=== PATIENT | male | born 1975 | race Caucasian/White ===

== ENCOUNTER 2017-12-23 14:38 | Inpatient (IN) | payer OTHER ==
[2017-12-23 14:55] LABS: ADD MAN DIFF? NO
[2017-12-23 14:57] LABS: BASOPHIL # 0.1 10^3/ul (0.0-0.1); BASOPHILS % 0.8 % (0.0-2.0); EOSINOPHILS # 0.1 10^3/ul (0.0-0.5); EOSINOPHILS % 1.1 % (0.0-7.0); HEMATOCRIT 44.8 % (42.0-52.0); HEMOGLOBIN 14.7 g/dl (14.0-18.0); LYMPHOCYTES # 1.3 10^3/ul (0.8-2.9); LYMPHOCYTES % 10.3 % (15.0-51.0); MEAN CORPUSCULAR HEMOGLOBIN 27.8 pg (29.0-33.0); MEAN CORPUSCULAR HGB CONC 32.8 g/dl (32.0-37.0); MEAN CORPUSCULAR VOLUME 84.8 fl (82.0-101.0); MEAN PLATELET VOLUME 11.7 fl (7.4-10.4); MONOCYTE # 0.7 10^3/ul (0.3-0.9); MONOCYTES % 5.3 % (0.0-11.0); NEUTROPHIL # 10.3 10^3/ul (1.6-7.5); PLATELET COUNT 339 10^3/UL (140-415); RED BLOOD COUNT 5.28 10^6/ul (4.70-6.10); RED CELL DISTRIBUTION WIDTH 12.9 % (11.5-14.5)
[2017-12-23 14:57] LABS: WHITE BLOOD COUNT 12.6 10^3/ul (4.8-10.8)
[2017-12-23] MEDS: ONDANSETRON 4 MG INJ IV (15:06)
[2017-12-23] MEDS: SOD CHLORIDE 0.9% 1,000 ML IV (15:07)
[2017-12-23 15:10] LABS: ADD UMIC NO; UR ASCORBIC ACID NEGATIVE (NEGATIVE); UR BILIRUBIN (Dip) NEGATIVE (NEGATIVE); UR BLOOD (Dip) NEGATIVE (NEGATIVE); UR CLARITY CLEAR (CLEAR); UR COLOR STRAW (YELLOW); UR GLUCOSE (Dip) 3+ mg/dL (NEGATIVE); UR KETONES (Dip) 2+ mg/dL (NEGATIVE); UR LEUKOCYTE ESTERASE (Dip) NEGATIVE Leu/ul (NEGATIVE); UR NITRITE (Dip) NEGATIVE (NEGATIVE); UR SPECIFIC GRAVITY (Dip) 1.028 (1.003-1.030); UR TOTAL PROTEIN (Dip) NEGATIVE (NEGATIVE); UR UROBILINOGEN (Dip) NEGATIVE (NEGATIVE)
[2017-12-23 15:30] LABS: ALANINE AMINOTRANSFERASE 23 IU/L (13-69); ALBUMIN 4.8 g/dl (3.3-4.9); ALBUMIN/GLOBULIN RATIO 1.54; ALKALINE PHOSPHATASE 121 IU/L (42-121); ANION GAP 28 (8-16); ASPARTATE AMINO TRANSFERASE 24 IU/L (15-46); BLOOD UREA NITROGEN 13 mg/dl (7-20); CALCIUM 9.7 mg/dl (8.4-10.2); CARBON DIOXIDE 16 mmol/L (21-31); CHLORIDE 98 mmol/L (97-110); CREATININE 1.02 mg/dl (0.61-1.24); LIPASE 114 U/L (23-300); POTASSIUM 4.9 mmol/L (3.5-5.1); SODIUM 137 mmol/L (135-144); TOTAL PROTEIN 7.9 g/dl (6.1-8.1)
[2017-12-23] MEDS ORDERED: POTASSIUM CHLORIDE 40 MEQ in SOD CHLORIDE 0.9% 1,000 ML IV ×2 (15:37→19:16)
[2017-12-23] MEDS ORDERED: SOD CHLORIDE 0.9% 1,000 ML IV ×2 (15:37→19:16)
[2017-12-23] MEDS ORDERED: SODIUM CHLORIDE 23.4% 77 MEQ, POTASSIUM CHLORIDE 40 MEQ in DEXTROSE 10% 1,000 ML IV ×2 (15:37→19:16)
[2017-12-23] MEDS ORDERED: SODIUM CHLORIDE 23.4% 77 MEQ in DEXTROSE 10% 1,000 ML IV ×2 (15:37→19:16)
[2017-12-23 15:56] LABS: GLUCOSE 421 mg/dl (70-220)
[2017-12-23] MEDS ORDERED: DEXTROSE 50% 50 ML SYRINGE IV ×6 (16:00→22:15)
[2017-12-23 16:14] LABS: MODE ROOM AIR; MetHgb Venous 0 %; Sample Type Blood venous; Site VENOUS LINE; Venous COHb 2.2 %; Venous Fraction OxyHgb 70.3 %; Venous Oxygen Sat 71.9 mmHG (55.0-75.0); Venous Total Hemglobin 14.5 g/dl
[2017-12-23] MEDS: LACTATED RINGER S IV (16:16)
[2017-12-23] MEDS: INSULIN REGULAR, HUMAN 100 UNIT in SOD CHLORIDE 0.9% 100 ML IV (16:30)
[2017-12-23] MEDS: POTASSIUM CHLORIDE 30 MEQ in SOD CHLORIDE 0.9% 1,000 ML IV (16:34)
[2017-12-23] MEDS: SODIUM CHLORIDE 23.4% 77 MEQ, POTASSIUM CHLORIDE 30 MEQ in DEXTROSE 10% 1,000 ML IV (16:35)
[2017-12-23 17:22] LABS: HEMOGLOBIN A1C 12.1 % (0-5.9)
[2017-12-23 18:23] LABS: ANION GAP 14 (8-16); BLOOD UREA NITROGEN 11 mg/dl (7-20); CALCIUM 7.9 mg/dl (8.4-10.2); CARBON DIOXIDE 20 mmol/L (21-31); CHLORIDE 107 mmol/L (97-110); CREATININE 0.68 mg/dl (0.61-1.24); MAGNESIUM 1.3 mg/dl (1.7-2.5); PHOSPHORUS 2.7 mg/dl (2.5-4.9); SODIUM 134 mmol/L (135-144)
[2017-12-23 18:39] LABS: GLUCOSE 786 mg/dl (70-220); POTASSIUM 6.9 mmol/L (3.5-5.1)
[2017-12-23] MEDS ORDERED: SODIUM CHLORIDE 23.4% 77 MEQ, POTASSIUM CHLORIDE 30 MEQ in DEXTROSE 10% 1,000 ML IV (19:16)
[2017-12-23] MEDS ORDERED: POTASSIUM CHLORIDE 30 MEQ in SOD CHLORIDE 0.9% 1,000 ML IV (19:16)
[2017-12-23] MEDS ORDERED: ONDANSETRON 4 MG INJ IV (19:30)
[2017-12-23] MEDS ORDERED: POTASSIUM CHLORIDE 50 ML IVPB (19:30)
[2017-12-23] MEDS ORDERED: ACETAMINOPHEN 650MG/20.3ML CUP PO (19:30)
[2017-12-23] MEDS: ACCU-CHEK XX ×3 (19:30→21:30)
[2017-12-23 20:35] LABS: ANION GAP 10 (8-16); BLOOD UREA NITROGEN 10 mg/dl (7-20); CALCIUM 8.4 mg/dl (8.4-10.2); CARBON DIOXIDE 24 mmol/L (21-31); CHLORIDE 109 mmol/L (97-110); CREATININE 0.68 mg/dl (0.61-1.24); GLUCOSE 132 mg/dl (70-220); MAGNESIUM 1.5 mg/dl (1.7-2.5); PHOSPHORUS 2.5 mg/dl (2.5-4.9); SODIUM 139 mmol/L (135-144)
[2017-12-23 20:54] LABS: MODE ROOM AIR; MetHgb Venous 0.3 %; Sample Type Blood venous; Site VENOUS LINE; Venous COHb 0.5 %; Venous Fraction OxyHgb 81.5 %; Venous Oxygen Sat 82.2 mmHG (55.0-75.0); Venous Total Hemglobin 9.8 g/dl
[2017-12-23 21:40] LABS: ANION GAP 8 (8-16); BLOOD UREA NITROGEN 10 mg/dl (7-20); CALCIUM 8.4 mg/dl (8.4-10.2); CARBON DIOXIDE 22 mmol/L (21-31); CHLORIDE 111 mmol/L (97-110); CREATININE 0.68 mg/dl (0.61-1.24); GLUCOSE 94 mg/dl (70-220); POTASSIUM 4.1 mmol/L (3.5-5.1); SODIUM 137 mmol/L (135-144)
[2017-12-23] MEDS ORDERED: INSULIN REGULAR, HUMAN 100 UNIT in SOD CHLORIDE 0.9% 99 ML IV (22:15)
[2017-12-23] MEDS ORDERED: GLUCAGON 1 MG INJ IM (22:15)
[2017-12-23] MEDS ORDERED: GLUCOSE GEL 15 GRAM TUBE BUCCAL (22:15)
[2017-12-23] MEDS ORDERED: GLUCOSE GEL 15 GRAM TUBE PO ×2 (22:15)
[2017-12-23] MEDS: INSULIN GLARGINE [LANTus] (100 UNITS/ML) SYG SC (22:32)
[2017-12-23 23:47] LABS: MODE ROOM AIR; MetHgb Venous 0.1 %; Sample Type Blood venous; Site VENOUS LINE; Venous COHb 0.3 %; Venous Fraction OxyHgb 90.4 %; Venous Oxygen Sat 90.8 mmHG (55.0-75.0); Venous Total Hemglobin 10.3 g/dl
[2017-12-23 23:58] LABS: ANION GAP 12 (8-16); BLOOD UREA NITROGEN 8 mg/dl (7-20); CALCIUM 8.6 mg/dl (8.4-10.2); CARBON DIOXIDE 24 mmol/L (21-31); CHLORIDE 108 mmol/L (97-110); CREATININE 0.67 mg/dl (0.61-1.24); GLUCOSE 156 mg/dl (70-220); MAGNESIUM 1.5 mg/dl (1.7-2.5); PHOSPHORUS 3.2 mg/dl (2.5-4.9); POTASSIUM 3.9 mmol/L (3.5-5.1); SODIUM 140 mmol/L (135-144)
[2017-12-24 04:45] LABS: MODE ROOM AIR; MetHgb Venous 0.1 %; Sample Type Blood venous; Site VENOUS LINE; Venous Fraction OxyHgb 62.3 %; Venous Total Hemglobin 13.8 g/dl
[2017-12-24] MEDS: INSULIN ASPART [NOVOLOG] 3 ML PEN SC ×5 (07:32→12:06)
[2017-12-24 08:27] LABS: ANION GAP 13 (8-16); BLOOD UREA NITROGEN 8 mg/dl (7-20); CARBON DIOXIDE 25 mmol/L (21-31); CHLORIDE 108 mmol/L (97-110); CREATININE 0.78 mg/dl (0.61-1.24); GLUCOSE 100 mg/dl (70-220); MAGNESIUM 1.5 mg/dl (1.7-2.5); PHOSPHORUS 3.2 mg/dl (2.5-4.9); POTASSIUM 3.8 mmol/L (3.5-5.1); SODIUM 142 mmol/L (135-144)
[2017-12-24] MEDS: MAGNESIUM SULFATE 2 GM/50 ML 50 ML IVPB ×2 (09:12→10:19)
[2017-12-24] MEDS: ENOXAPARIN 40 MG/0.4 ML SYG SC (09:13)
[2017-12-24 09:14] LABS: ANION GAP 14 (8-16); BLOOD UREA NITROGEN 7 mg/dl (7-20); CALCIUM 8.9 mg/dl (8.4-10.2); CARBON DIOXIDE 23 mmol/L (21-31); CHLORIDE 107 mmol/L (97-110); CREATININE 0.71 mg/dl (0.61-1.24); GLUCOSE 219 mg/dl (70-220); MAGNESIUM 1.4 mg/dl (1.7-2.5); PHOSPHORUS 3.1 mg/dl (2.5-4.9); POTASSIUM 3.8 mmol/L (3.5-5.1); SODIUM 140 mmol/L (135-144)
[2017-12-24 09:49] LABS: MODE ROOM AIR; MetHgb Venous 0.1 %; Sample Type Blood venous; Site OTHER; Venous COHb 0.6 %; Venous Fraction OxyHgb 90.9 %; Venous Oxygen Sat 91.5 mmHG (55.0-75.0); Venous Total Hemglobin 13.9 g/dl
[2017-12-24 11:55] LABS: ANION GAP 9 (8-16); BLOOD UREA NITROGEN 7 mg/dl (7-20); CARBON DIOXIDE 28 mmol/L (21-31); CHLORIDE 106 mmol/L (97-110); CREATININE 0.67 mg/dl (0.61-1.24); GLUCOSE 164 mg/dl (70-220); MAGNESIUM 2.1 mg/dl (1.7-2.5); PHOSPHORUS 2.8 mg/dl (2.5-4.9); POTASSIUM 4.2 mmol/L (3.5-5.1); SODIUM 139 mmol/L (135-144)
== END 2017-12-24 13:58 | disposition home or self-care (01) | DRG 639 ==
LOC: E/R 14:38 → MS3 19:22
PROVIDERS: Hospitalist
DX: E10.10 Type 1 diabetes mellitus with ketoacidosis without coma (principal); E86.0 Dehydration
CPT/HCPCS: 36415; 71045; 80048; 80053; 81003; 82803; 82962; 83036; 83690; 83735; 84100; 85025; 87081; 93005; 96361; 96374; 99291-25